=== PATIENT | female | born 1965 | race Caucasian/White ===

== ENCOUNTER 2024-05-08 14:14 | Emergency (ER) | payer OTHER ==
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
[2024-05-08 14:57] LABS: Basophils % (A) 1 %; Eosinophils # (A) 0.4 k/uL (0-0.7); Eosinophils % (A) 7 %; HCT 42.4 % (34.0-46.0); HGB 13.9 gm/dL (11.4-16.0); Lymphocytes # (A) 1.9 k/uL (1.0-4.8); Lymphocytes % (A) 30 %; MCH 28.6 pg (25.0-35.0); MCHC 32.8 g/dL (31.0-37.0); MCV 87.1 fL (80.0-100.0); Mean Platelet Volume 8.4; Monocytes # (A) 0.4 k/uL (0-1.0); Monocytes % (A) 6 %; Neutrophils # (A) 3.5 k/uL (1.3-7.7); Neutrophils % (A) 55 %; Platelet Count 270 k/uL (150-450); RBC 4.87 m/uL (3.80-5.40); RDW 13.3 % (11.5-15.5); WBC 6.4 k/uL (3.8-10.6)
[2024-05-08] MEDS: SODIUM CHLORIDE 0.9% 1,000 ML IV STA (15:07)
[2024-05-08] MEDS: methylPREDNISolone SOD SUCCI 125 MG/2 ML VIAL IV STA (15:08)
[2024-05-08 15:11] LABS: ALT 43 U/L (4-34); AST 165 U/L (14-36); African American GFR (CKD) >90 (>60 ml/min/1.73 sqM); Albumin 4.5 g/dL (3.5-5.0); Alcohol <10 mg/dL; Alkaline Phosphatase 93 U/L (38-126); Anion Gap 9 mmol/L; Blood Urea Nitrogen 17 mg/dL (7-17); Calcium 9.6 mg/dL (8.4-10.2); Carbon Dioxide 24 mmol/L (22-30); Chloride 110 mmol/L (98-107); Glucose 94 mg/dL (74-99); Non-African American GFR(CKD) >90 (>60 ml/min/1.73 sqM); Potassium 3.9 mmol/L (3.5-5.1); Sodium 143 mmol/L (137-145); Total Bilirubin 0.7 mg/dL (0.2-1.3); Total Protein 7.6 g/dL (6.3-8.2)
[2024-05-08] MEDS: diphenhydrAMINE 50 MG/ML 1 ML VIAL IVP STA (15:12)
[2024-05-08 15:15] LABS: INR 0.9 (<1.2); Partial Thromboplastin Time 22.3 sec (22.0-30.0); Prothrombin Time 10.2 sec (10.0-12.5)
[2024-05-08] MEDS: FAMOTIDINE 20 MG/2 ML VIAL IV STA (15:15)
[2024-05-08] MEDS: ACETAMINOPHEN IV (For NPO) 1,000 MG in EMPTY BAG 1 BAG IVPB STA (15:19)
[2024-05-08 15:43] VITALS: RESP 18
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
[2024-05-08 17:08] LABS: Appearance,Urine Clear (Clear); Bacteria,Urine Occasional /hpf; Bilirubin,Urine Negative (Negative); Blood,Urine Negative (Negative); Color,Urine Colorless; Glucose,Urine (UA) Negative (Negative); Ketones,Urine Negative (Negative); Leukocyte Esterase,Urine Large (Negative); Mucus,Urine Rare /hpf; Nitrite,Urine Negative (Negative); Protein,Urine Negative (Negative); RBC,Urine 1 /hpf (0-5); Specific Gravity,Urine 1.019 (1.001-1.035); Squamous Epithelial Cell,Urine 3 /hpf (0-4); Urobilinogen,Urine <2.0 mg/dL (<2.0); WBC,Urine 19 /hpf (0-5)
[2024-05-08 17:27] LABS: Amphetamine Screen,Urine Not Detected (NotDetected); Barbiturate Screen,Urine Not Detected (NotDetected); Benzodiazepines Screen,Urine Not Detected (NotDetected); Cocaine Screen,Urine Not Detected (NotDetected); Methadone Screen, Urine Not Detected (NotDetected); Opiate Screen,Urine Not Detected (NotDetected); Oxycodone Screen, Urine Not Detected (NotDetected); Phencyclidine Screen,Urine Not Detected (NotDetected); Tricyclic Antidepressant,Urine Not Detected (NotDetected); Urn Cannabinoid Scrn Not Detected (NotDetected)
[2024-05-08 18:37] VITALS: BP 137/88; PULSE 67; TEMP 98.2
== END 2024-05-08 18:41 ==
LOC: EC 14:14
DX: S30.1XXA Contusion of abdominal wall, initial encounter (principal); R07.89 Other chest pain; M54.2 Cervicalgia; Z87.891 Personal history of nicotine dependence; Z91.041 Radiographic dye allergy status; V49.49XA Driver injured in collision with other motor vehicles in traffic accident, initial encounter
CPT/HCPCS: 36415; 93005; 86900; 86901; 80053; 84484; 85025; 85610; 85730; 86850; 81001; 80306; 80320; 72125; 70450; 71260; 74177; 99285; 96374; 96375 ×3; 96361; J1200; J3490; J0131; Q9967; J2919